=== PATIENT | female | born 1975 | race Caucasian/White ===

== ENCOUNTER 2019-06-05 08:08 | Emergency (ER) | payer OTHER ==
[~2019-06-05] VITALS: Ht 162.6 cm; Wt 81.7 kg
[2019-06-05] MEDS ORDERED: HYDROXYCHLOROQ200 M1 PO (08:37)
[2019-06-05] MEDS ORDERED: AZULFIDINE500 MG PO (08:38)
[2019-06-05] MEDS ORDERED: NEXIUM20 MG PO (08:39)
[2019-06-05] MEDS ORDERED: ULTRAM 50MG TAB50 MG PO (09:43)
[2019-06-05] MEDS ORDERED: NORFLEX100 MG PO (09:43)
[2019-06-05 10:01] VITALS: BP 106/76
== END 2019-06-05 10:01 | disposition home or self-care (01) ==
LOC: ER 08:08
DX: S93.492A Sprain of other ligament of left ankle, initial encounter (principal); S80.02XA Contusion of left knee, initial encounter; S90.02XA Contusion of left ankle, initial encounter; M54.6 Pain in thoracic spine; Z88.6 Allergy status to analgesic agent; W01.0XXA Fall on same level from slipping, tripping and stumbling without subsequent striking against object, initial encounter; Y93.89 Activity, other specified; Y92.89 Other specified places as the place of occurrence of the external cause; Y99.8 Other external cause status